=== PATIENT | female | born 2000 | race Caucasian/White ===

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

== ENCOUNTER 2020-12-10 11:45 | Emergency (ER) | payer SELFPAY ==
[2020-12-10] MEDS ORDERED: PROCHLORPERAZINE INJ 10 MG/2 ML VIAL IM PRN (13:35)
[2020-12-10] MEDS ORDERED: KETOROLAC TROMETHAMINE INJ 30 MG/ML VIAL IM ONE (13:35)
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
[2020-12-10 14:48] VITALS: O2SAT 98
[2020-12-10 15:25] VITALS: BP 104/60; TEMP 97.3
== END 2020-12-10 15:24 | disposition home or self-care (01) ==
LOC: ER 11:45
DX: R51.9 Headache, unspecified (principal); F12.10 Cannabis abuse, uncomplicated; J45.909 Unspecified asthma, uncomplicated
CPT/HCPCS: 80307; 81001; 81025; J0780; J1885